=== PATIENT | male | born 1955 | race Caucasian/White ===

== ENCOUNTER 2024-07-13 07:37 | Outpatient (RCR) | payer MEDICARE, SELFPAY ==
[2024-07-13 09:37] LABS: Anion Gap 9.4; BUN Creatinine Ratio 21.5; Calcium 10.3 mg/dL (8.5-10.1); Carbon Dioxide 32.1 mmol/L (21.0-32.0); Chloride 93 mmol/L (98-107); Estimated GFR (African America >60 (>=60); Estimated GFR (Non-African Ame 60 (>=60); Glucose 133 mg/dL (74-106); Potassium 3.5 mmol/L (3.5-5.1); Sodium 131 mmol/L (136-145)
== END 2024-07-20 12:42 | disposition home or self-care (01) ==
LOC: LAB 07:37
PROVIDERS: Family Provider Internal Medicine; PCP Family Medicine; Visit Provider Family Medicine
DX: E83.42 Hypomagnesemia (principal)
CPT/HCPCS: 36415; 80048